=== PATIENT | female | born 1960 | race Caucasian/White ===

== ENCOUNTER 2016-08-10 12:35 | Inpatient (IN) | payer OTHER ==
--- NOTE | ~2016-08-10 | HP ---
History And Physical [address] [place]. [address] NAME: AGUILAR GOSS : 56 STATUS : ADM Shine PAT#: [id number] AGE: 56 ADM/REG DATE : 08/10/16 MR#: [id number] REPORT SERV DATE: 08/10/16 DICTATED BY: Jameson WRIGHT DATE: 08/10/16 REPORT STATUS : Draft TRANSCRIBED BY: MODL DATE: 08/10/16 DATE OF ADMISSION: 08/10/2016 HISTORY OF PRESENT ILLNESS: A 56-year-old female, presents with recurrent syncope. The patient has had multiple episodes of syncope over the last few weeks and was recently diagnosed with moderate aortic stenosis per echocardiogram with a valve area of 1.[address] Jeff Nagel is her supply coordinator and they have discussed the timing of the consideration for valve replacement. Because of the recurrent nature of her symptoms and coupled with increased weakness and concern, the patient presents to the emergency room today for evaluation. PAST MEDICAL HISTORY: Includes anxiety, depression, GERD, dyslipidemia, and hypothyroidism, on replacement therapy. SOCIAL HISTORY: No alcohol, tobacco, or drugs. Good supportive family. REVIEW OF SYSTEMS: As per HPI. Specifically negative for lynne chest pain or shortness of breath. No melena, hematochezia, hemoptysis, or hematuria. Remainder of 10-point review of systems negative except as stated above. FAMILY HISTORY: Positive for heart disease. PHYSICAL EXAMINATION: VITAL SIGNS: Temperature 98.2, heart rate 71, respirations 20, blood pressure 135/74. GENERAL: This is a well-developed, well-nourished female, conversant, no distress. HEENT: Pupils are equal, round, and reactive to light. Extraocular muscles are intact. Oropharynx is clear. NECK: Without JVD, thyromegaly, or bruit. LUNGS: Clear. HEART: Regular. Murmur is 2-3/6 heard throughout the precordium. ABDOMEN: Soft. Positive bowel sounds without organomegaly or mass. EXTREMITIES: No edema. Pulses +2. SKIN: Without rash or ecchymotic area. JOINTS: Without synovitis, effusion, or deformity. NEURO: Cranial nerves grossly intact. Motor exam is nonfocal. Sensation is normal. Gait is normal. Reflexes are normal and symmetric. GENITOURINARY: Deferred. RECTAL: Deferred. LABORATORY DATA: EKG shows sinus rhythm with no ST or T-wave abnormality. Chest x-ray is negative. White count is 9.1, hemoglobin 12.4, hematocrit 38.3, platelets 395. Sodium 143, potassium 4.1, chloride 109, bicarb 29, BUN 21, creatinine 0.64. IMPRESSION: A 56-year-old female patient with recurrent syncope in the setting of aortic stenosis. History And Physical [address] [address] NAME: AGUILAR GOSS : 56 STATUS : ADM Shine PAT#: [id number] AGE: 56 ADM/REG DATE : 08/10/16 MR#: [id number] REPORT SERV DATE: 08/10/16 DICTATED BY: Jameson WRIGHT DATE: 08/10/16 REPORT STATUS : Draft TRANSCRIBED BY: GAYATRI DATE: 08/10/16 PLAN: A 23-hour observation. Consult to her supply coordinator, Dr. Jeff Nagel. Electrolyte replacement guidelines. Routine vitals. Diet as tolerated. Repeat CBC and electrolytes. Hydrate with saline at 125 an hour x2 L. repeat EKG. DVT prophylaxis with Lovenox. Reasonable pain and nausea control will be offered. Check orthostatic vitals every shift. Continue current home medications. Further recommendations for evaluation and treatment. Pending input from Dr. Jeff Nagel and review of pending data. [facility]/GAYATRI Jameson Wright M.D. / [id number] CC: Holger Son M.D.
--- NOTE | ~2016-08-10 | OP ---
Record Of Operation [facility] [address] [place]. [address] NAME: CAROLINE MILLER : 56 STATUS : DIS IN PAT#: [id number] AGE: 56 ADM/REG DATE : 08/10/16 MR#: [id number] REPORT SERV DATE: 09/01/16 DICTATED BY: JAKE NAGEL III DATE: 09/01/16 REPORT STATUS : Draft TRANSCRIBED BY: MODL DATE: 09/01/16 DATE OF PROCEDURE: 08/12/2016 PROCEDURAL INPUT OUTPUT CLERK: Jake Nagel M.D., [facility], [facility] INDICATION: Mrs. Caroline Miller is a 56-year-old white female with two other risk factors for coronary atherosclerotic disease (i.e. family history, hyperlipoproteinemia), moderate aortic stenosis with mild regurgitation and a normal myocardial perfusion scan, who presented with recurrent syncope. The patient was referred for right and left heart catheterization to define coronary anatomy, left ventricular function, aortic valve function, and right heart pressures. Options, potential risks, and benefits of the procedure were discussed with the patient. The patient accepted these risks and wished to proceed. PROCEDURE DESCRIPTION: 1. Right heart catheterization. 2. Left heart catheterization. 3. Left ventriculogram. 4. Left and right coronary angiograms. 5. Limited right iliofemoral angiogram. CONTRAST: Iopamidol 120 mL. MEDICATIONS: 1. Midazolam 2 mg intravenously, in divided doses. 2. Fentanyl 100 mcg intravenously, in divided doses. EQUIPMENT: 1. 4-Barbadian Cook micropuncture with stiffened cannula (RFA). 2. 0.035-inch PTFE coated, 150 cm, 3 mm J Cordis Bon Air guidewire. 3. 6-Barbadian, 10 cm Terumo pinnacle sheath (RFA). 4. 6-Barbadian, 100 cm #4 curved right coronary artery Concepcion catheter. 5. 0.035-inch stainless steel, 35 cm, 3 mm J guidewire. 6. 7-Barbadian, 11 cm Cordis Mariaelena MS sheath (RFV). 7. 7-Barbadian, 110 cm Llamas Westland-Tito thermodilution catheter. 8. 0.035-inch PTFE coated, 150 cm, straight Cordis Bon Air guidewire. 9. 0.035-inch PTFE coated, 260 cm, 3 mm J Cordis Bon Air exchange guidewire. 10.6-Barbadian [employer] Solutions Medora dual-lumen pigtail catheter. 11.6-Barbadian, 100 cm #5 curved left coronary artery Concepcion catheter. 12.6-Barbadian Holloway Perclose ProGlide vascular closure device. COMPLICATIONS: None. RADIATION DOSE: 296 mGy. ESTIMATED BLOOD LOSS: 15 mL. Record Of Operation [address] [place]. [address] NAME: CAROLINE MILLER : 56 STATUS : DIS IN PAT#: [id number] AGE: 56 ADM/REG DATE : 08/10/16 MR#: [id number] REPORT SERV DATE: 09/01/16 DICTATED BY: JAKE NAGEL III DATE: 09/01/16 REPORT STATUS : Draft TRANSCRIBED BY: GAYATRI DATE: 09/01/16 OXIMETRIC DATA: The oxygen saturation in the superior vena cava was 58%. The oxygen saturation in the pulmonary artery was 50%. The oxygen saturation in the central aorta was 95%. HEMODYNAMIC DATA: Prior to the injection of contrast, the central aortic pressure was 144/65 mmHg with a mean of 93 mmHg. The left ventricular pressure was 170/14 mmHg. The mean pulmonary capillary wedge pressure was 14 mmHg. The pulmonary artery pressure was 42/15 mmHg, with a mean of 24 mmHg. The right ventricular pressure was 43/14 mmHg. The mean right atrial pressure was 10 mmHg. The cardiac output as determined by using the assumed Luz Maria and thermodilution techniques were 2.6 L/minute and 4.9 L/minute, respectively. The cardiac index as determined by using the assumed Luz Maria and thermodilution techniques were 1.6 L/minute per sq m and 2.9 L/minute per sq m, respectively. The mean aortic valve gradient was 36 mmHg. The aortic valve area as determined by using the Gorlin formula was 1.2 sq cm. The aortic valve area index was 0.7 sq cm/sq m. The pulmonary vascular resistance and pulmonary vascular resistance index as determined by using the thermodilution cardiac output were 160 dynes-seconds over centimeters to the fifth power and 266, respectively. The systemic vascular resistance and systemic vascular resistance index as determined by using the thermodilution cardiac output were 1350 dynes- seconds over centimeter to the fifth power and 2241, respectively. ANGIOGRAPHIC DATA: Limited right iliofemoral angiography demonstrated irregularities of the distal external iliac and common femoral arteries. The insertion site was located in the common femoral artery, just distal to the origin of the inferior epigastric artery. Single plane 30-degree MOODY left ventriculography demonstrated that the left ventricle was normal in size. Regional and global left ventricular systolic functions were normal. There was trace mitral regurgitation. The aortic valve was thickened and demonstrated decreased excursion. There was mild dilation of the ascending thoracic aorta. The left main coronary artery was a large caliber, long, normal vessel. The left main coronary artery trifurcated into a medium caliber left anterior descending, small caliber ramus intermedius and a large caliber, dominant left circumflex coronary arteries. The left anterior descending coronary artery gave rise to two major septal perforators and one medium caliber diagonal branch, before wrapping around the left ventricular apex. There were minor luminal irregularities. The left anterior descending coronary artery was free of angiographically significant obstructive epicardial coronary artery disease. The ramus intermedius was a small caliber, normal vessel. The left circumflex coronary artery was a large caliber, dominant vessel. The left circumflex coronary artery gave rise to a small caliber first obtuse marginal branch, medium Record Of Operation [address] [place]. [address] NAME: CAROLINE MILLER : 56 STATUS : DIS IN PAT#: [id number] AGE: 56 ADM/REG DATE : 08/10/16 MR#: [id number] REPORT SERV DATE: 09/01/16 DICTATED BY: JAKE NAGEL III DATE: 09/01/16 REPORT STATUS : Draft TRANSCRIBED BY: GAYATRI DATE: 09/01/16 to large caliber second obtuse marginal branch, small caliber third obtuse marginal branch, [id number] caliber first posterolateral segment branch, medium caliber second posterolateral segment branch, and a [id number] caliber posterior descending coronary artery. There were minor luminal irregularities. The left circumflex coronary artery was free of angiographically significant obstructive epicardial coronary artery disease. The right coronary artery was a small caliber, nondominant vessel. The right coronary artery gave rise to a conus branch, small caliber right ventricular branch, and a medium caliber acute marginal branch, before terminating at the acute margin. The right coronary artery was normal. PATIENT DISPOSITION: Coronary Short Stay Unit. CONCLUSION: 1. Normal regional and global left ventricular systolic functions. 2. Elevated left ventricular end-diastolic pressure. 3. Moderate aortic stenosis. 4. Angiographically insignificant epicardial coronary artery disease. 5. Left dominant coronary anatomy. 6. Elevated right ventricular end-diastolic pressure. 7. Elevated pulmonary vascular resistance. RECOMMENDATIONS: Aspirin 81 mg p.o. q.a.m., continued serial echocardiograms at one-year intervals, cardiac rehabilitation program, and evaluation for noncardiac causes of syncope. [facility]/GAYATRI Jake Nagel III, M.D., [facility], [facility] [place] [facility] / [id number] CC: Holger Stone M.D.
--- NOTE | ~2016-08-10 | DS ---
Discharge Summary [address] [place]. [address] NAME: AGUILAR GOSS : 56 STATUS : DIS IN PAT#: [id number] AGE: 56 ADM/REG DATE : 08/10/16 MR#: [id number] REPORT SERV DATE: 08/14/16 DICTATED BY: JAHAIRA WINTER DATE: 08/13/16 REPORT STATUS : Draft TRANSCRIBED BY: MODL DATE: 08/13/16 ADMISSION DATE: 08/10/2016 DISCHARGE DATE: 08/13/2016 PRINCIPAL DIAGNOSIS: Syncope due to aortic stenosis. HISTORY OF PRESENT ILLNESS: See Dr. Crow's dictation on 08/10/2016. HOSPITAL COURSE: Admitted with a syncopal event in the setting of known aortic stenosis with a valve area of 1.0 cm. No chest pain. No CHF symptoms. She underwent however cardiac catheterization to get definitive measurements and gradients, found to have a measured 1.2 cm2 with a gradient of 38 mmHg. This was not felt to be critical, but the frequency of her echocardiography should happen every three months. She would follow up with Dr. Jeff Hernandez regarding that issue. The patient will continue her same medications. DICTATED BY: Holger Stone/GAYATRI Jahaira Winter M.D. / [id number] CC: Holger Stone M.D. Leonard Hays III, M.D., [facility]
[2016-08-10] MEDS ORDERED: LEVOTHYROXIN50 MCG PO (13:11)
[2016-08-10] MEDS ORDERED: ACIPHEX PO (13:11)
[2016-08-10] MEDS ORDERED: ZOCOR40 PO (13:12)
[2016-08-10] MEDS ORDERED: LEXAPRO20 PO (13:12)
[2016-08-10] MEDS ORDERED: CENTRUM PO (13:12)
[2016-08-10] MEDS ORDERED: PROAIR HFA INH (13:13)
[2016-08-10 13:33] LABS: BASOPHILS 0.7 %; BASOPHILS ABSOLUTE 0.06 10/3/uL (0.0-0.16); EOSINOPHILS 1.5 %; EOSINOPHILS ABSOLUTE 0.14 10/3/uL (0.0-0.53); ER CBC TAT 0 Hrs 07 Mins; HEMATOCRIT 38.3 % (36.0-48.0); HEMOGLOBIN 12.4 g/dL (12.0-16.0); IMMATURE GRANULOCYTES 0.2 %; IMMATURE GRANULOCYTES ABSOLUTE 0.02 10/3/uL (0.0-0.11); LYMPHOCYTES 22.4 %; LYMPHOCYTES ABSOLUTE 2.03 10/3/uL (0.67-4.30); MEAN CORPUS HGB CONC 32.4 g/dL (32.0-36.0); MEAN CORPUSCULAR HEMOGLOB 29.6 pg (26.0-34.0); MEAN CORPUSCULAR VOLUME 91.4 fL (80-100); MEAN PLATELET VOLUME 9.9 fL (9.2-13.0); MONOCYTES 6.6 %; NEUTROPHILS 68.6 %; PLATELET COUNT 295 10/3/uL (150-400); RBC DISTRIBUTION WIDTH 13.8 % (12.0-16.0); RED CELL COUNT 4.19 10/6/uL (4.0-5.6); WHITE BLOOD CELLS 9.1 10/3/uL (4.5-10.5)
[2016-08-10 13:34] LABS: MANUAL DIFF NO %
[2016-08-10 13:38] LABS: INTERNATIONAL NORMAL RATI 0.9 UNITS (-); PARTIAL THROMBO TIME 29.2 SEC (22.5-37.2); PROTIME (NOT ORD) 11.5 SEC (12.0-14.5)
[2016-08-10 13:47] LABS: BUN (BLOOD UREA NITROGEN) 21 MG/DL (6-23); CALCIUM, SERUM 8.9 MG/DL (8.5-10.4); CHEST PAIN PROFILE TAT 0 Hrs 21 Mins; CHLORIDE, SERUM 109 MMOL/L (96-112); CO2 (CARBON DIOXIDE) 29 MMOL/L (24-34); CREATININE 0.64 MG/DL (0.55-1.02); GFR AFRICAN AMERICAN 114 ML/MIN (>=60); GFR NON AFRICAN AMERICAN 98 ML/MIN (>=60); GLUCOSE, SERUM 91 MG/DL (60-99); POTASSIUM, SERUM 4.4 MMOL/L (3.5-5.3); SODIUM, SERUM 143 MMOL/L (135-148); TROPONIN I <0.02 NG/ML (<0.05)
[2016-08-11 05:01] LABS: BASOPHILS 0.7 %; BASOPHILS ABSOLUTE 0.05 10/3/uL (0.0-0.16); EOSINOPHILS ABSOLUTE 0.15 10/3/uL (0.0-0.53); HEMOGLOBIN 11.6 g/dL (12.0-16.0); IMMATURE GRANULOCYTES 0.1 %; IMMATURE GRANULOCYTES ABSOLUTE 0.01 10/3/uL (0.0-0.11); LYMPHOCYTES ABSOLUTE 2.85 10/3/uL (0.67-4.30); MEAN CORPUS HGB CONC 33.1 g/dL (32.0-36.0); MEAN CORPUSCULAR HEMOGLOB 29.9 pg (26.0-34.0); MEAN CORPUSCULAR VOLUME 90.2 fL (80-100); MEAN PLATELET VOLUME 10.1 fL (9.2-13.0); MONOCYTES 9.1 %; MONOCYTES ABSOLUTE 0.68 10/3/uL (0.21-1.20); NEUTROPHILS 50.1 %; NEUTROPHILS ABSOLUTE 3.76 10/3/uL (2.02-8.40); PLATELET COUNT 285 10/3/uL (150-400); RBC DISTRIBUTION WIDTH 13.9 % (12.0-16.0); RED CELL COUNT 3.88 10/6/uL (4.0-5.6); WHITE BLOOD CELLS 7.5 10/3/uL (4.5-10.5)
[2016-08-11 05:03] LABS: MANUAL DIFF NO %
[2016-08-11 05:15] LABS: CALCIUM, SERUM 8.3 MG/DL (8.5-10.4); CHLORIDE, SERUM 112 MMOL/L (96-112); CO2 (CARBON DIOXIDE) 28 MMOL/L (24-34); CREATININE 0.61 MG/DL (0.55-1.02); GFR AFRICAN AMERICAN 116 ML/MIN (>=60); GFR NON AFRICAN AMERICAN 100 ML/MIN (>=60); GLUCOSE, SERUM 101 MG/DL (60-99); POTASSIUM, SERUM 4.1 MMOL/L (3.5-5.3); SODIUM, SERUM 146 MMOL/L (135-148)
[2016-08-11 05:17] LABS: BUN (BLOOD UREA NITROGEN) 17 MG/DL (6-23)
[2016-08-12 04:59] LABS: BASOPHILS 0.3 %; BASOPHILS ABSOLUTE 0.03 10/3/uL (0.0-0.16); EOSINOPHILS 1.4 %; EOSINOPHILS ABSOLUTE 0.13 10/3/uL (0.0-0.53); HEMATOCRIT 34.3 % (36.0-48.0); HEMOGLOBIN 11.4 g/dL (12.0-16.0); IMMATURE GRANULOCYTES 0.2 %; IMMATURE GRANULOCYTES ABSOLUTE 0.02 10/3/uL (0.0-0.11); LYMPHOCYTES 23.8 %; LYMPHOCYTES ABSOLUTE 2.23 10/3/uL (0.67-4.30); MANUAL DIFF NO %; MEAN CORPUS HGB CONC 33.2 g/dL (32.0-36.0); MEAN CORPUSCULAR HEMOGLOB 30.2 pg (26.0-34.0); MEAN PLATELET VOLUME 10.5 fL (9.2-13.0); MONOCYTES 9.7 %; MONOCYTES ABSOLUTE 0.91 10/3/uL (0.21-1.20); NEUTROPHILS 64.6 %; NEUTROPHILS ABSOLUTE 6.05 10/3/uL (2.02-8.40); PLATELET COUNT 284 10/3/uL (150-400); RBC DISTRIBUTION WIDTH 13.8 % (12.0-16.0); RED CELL COUNT 3.77 10/6/uL (4.0-5.6); WHITE BLOOD CELLS 9.4 10/3/uL (4.5-10.5)
[2016-08-12 05:12] LABS: BUN (BLOOD UREA NITROGEN) 18 MG/DL (6-23); CHLORIDE, SERUM 107 MMOL/L (96-112); CO2 (CARBON DIOXIDE) 28 MMOL/L (24-34); CREATININE 0.61 MG/DL (0.55-1.02); GFR AFRICAN AMERICAN 116 ML/MIN (>=60); GFR NON AFRICAN AMERICAN 100 ML/MIN (>=60); GLUCOSE, SERUM 111 MG/DL (60-99); POTASSIUM, SERUM 3.8 MMOL/L (3.5-5.3)
[2016-08-12 05:13] LABS: SODIUM, SERUM 139 MMOL/L (135-148)
[2016-08-12 09:23] LABS: CHOL/HDL RATIO(NOT ORDER) 2.1 (0-5); CHOLESTEROL 204 MG/DL (< 200); HDL CHOLESTEROL 97 MG/DL (> 49); LDL CHOLESTEROL 88 MG/DL (< 130); NON-HDL CHOLESTEROL 107 MG/DL (< 160); TRIGLYCERIDE 98 MG/DL (< 150)
[2016-08-13 06:16] LABS: CALCIUM, SERUM 8.6 MG/DL (8.5-10.4); CHLORIDE, SERUM 111 MMOL/L (96-112); CO2 (CARBON DIOXIDE) 26 MMOL/L (24-34); CREATININE 0.52 MG/DL (0.55-1.02); GFR AFRICAN AMERICAN 122 ML/MIN (>=60); GFR NON AFRICAN AMERICAN 105 ML/MIN (>=60); GLUCOSE, SERUM 94 MG/DL (60-99); POTASSIUM, SERUM 4.3 MMOL/L (3.5-5.3); SODIUM, SERUM 143 MMOL/L (135-148)
[2016-08-13 06:17] LABS: BUN (BLOOD UREA NITROGEN) 13 MG/DL (6-23)
== END 2016-08-13 11:30 | disposition home or self-care (01) | DRG 307 ==
LOC: ER 12:35 → CDU1 14:32 → CDU2 15:35
PROVIDERS: Emergency Medicine; Hospitalist; Internal Medicine
DX: I35.0 Nonrheumatic aortic (valve) stenosis (principal); F32.9 Major depressive disorder, single episode, unspecified; E03.9 Hypothyroidism, unspecified; F41.9 Anxiety disorder, unspecified; K21.9 Gastro-esophageal reflux disease without esophagitis; R55 Syncope and collapse; E78.5 Hyperlipidemia, unspecified
CPT/HCPCS: 71010; 80048; 80061; 82803; 83735; 83880; 84484; 85025; 85610; 85730; 93005; 93460; 99285; A9270-GY; C1751; C1760; C1769; C1894; G0378; J0360; J2250; J2405; J3010; Q9967